=== PATIENT | female | born 1990 | race Hispanic/Latino ===

== ENCOUNTER 2022-02-02 13:05 | Emergency (ER) | payer BC ==
[~2022-02-02] VITALS: Ht 160 cm; Wt 95.3 kg
[2022-02-02] MEDS ORDERED: MECLIZINE HCL 12.5 MG TAB PO STA (13:45)
[2022-02-02] MEDS ORDERED: MECLIZINE HCL12.5 MG PO (14:13)
== END 2022-02-02 14:27 | disposition home or self-care (01) ==
LOC: ER 13:20
DX: H81.10 Benign paroxysmal vertigo, unspecified ear (principal); R51.9 Headache, unspecified
CPT/HCPCS: 99282; J8597